=== PATIENT | male | born 1955 | race Caucasian/White ===

== ENCOUNTER 2021-08-20 11:10 | Inpatient (IN) | payer OTHER, SELFPAY ==
[~2021-08-20] VITALS: Ht 170.2 cm; Wt 60.8 kg
--- NOTE | 2021-08-20 11:13 | NUR ---
Placed in room 3 . Placed on continuous still operator, blood pressure machine and pulse oximeter. To gown for exam. Side rails up.
[2021-08-20 11:15] VITALS: BP_SYST 109
--- NOTE | 2021-08-20 11:15 | NUR ---
BRADEN FROM [facility] FOR SOB, CHEST PAIN, TACHYCARDIC AND HYPOTESIVE ARRIVES PULSE IN 120S AND BP 104/67. PT IS SOB 02 SAT ON 4LPM IS 87-88%. PT PLACED ON NRB @ 10LPM O2 SAT INCREASED TO 90-92%. PT HAS PICC IN PLACE TO LEFT UPPER ARM. EMS PLACED #20 TO RIGHT HAND. BLACK CATH IN PLACE. PT HAS HX HTN, COPD, RECENT ABDOMINAL HERNIA REPAIR WITH SEPSIS, INTRA ABDOMINAL ABSCESSES AND CUTANEOUS FISTULAS PT DENIES PAIN UPON ARRIVAL. PER EMS PT HAS BEEN RECEIVING TPN DUE TO NOT TOLERATING PO. PT IS AAOX4
--- NOTE | 2021-08-20 11:30 | NUR ---
ER DR. ADAMS AT THE BEDSIDE EXAMINING PT
[2021-08-20] MEDS ORDERED: NS 1000 ML IV.SOLN IV ONE (11:45)
[2021-08-20] MEDS ORDERED: ACETAMINOPHEN 500 MG TABLET PO ONE (11:45)
[2021-08-20] MEDS ORDERED: PIPERACILLIN/TAZO 3.38 GM in D5W 50 ML IV ONE (11:45)
[2021-08-20] MEDS ORDERED: VANCOMYCIN HCL 1,000 MG in D5W 250 ML IV ONE (11:45)
[2021-08-20] MEDS ORDERED: metroNIDAZOLE 500 MG TABLET PO ONE (11:45)
--- NOTE | 2021-08-20 12:02 | NUR ---
FAMILY CONTACT Britta Barkley -SISTER- [phone]
--- NOTE | 2021-08-20 12:05 | NUR ---
PT ABLE TO TOLERATE SIPS OF WATER FOR PO MEDICATION
--- NOTE | 2021-08-20 12:05 | NUR ---
LAB AT THE BEDSIDE FOR BLOOD DRAW
[2021-08-20] MEDS ORDERED: ALBUTEROL SULFATE 0.083% 2.5 MG/3 ML VIAL.NEB INH ONE (12:15)
[2021-08-20] MEDS ORDERED: PIPERACILLIN/TAZOBACTAM 3.375 GM/VIAL (ZOSYN) IV ONE ×2 (12:21→19:04)
--- NOTE | 2021-08-20 12:30 | NUR ---
RT AT THE BEDSIDE-BREATHING TX. PT NOW ON SIMPLE MASK @ 8LPM 2O SAT 94%
[2021-08-20 12:32] LABS: BASOPHILS % (AUTO) 0.1 % (0.0-2.0); HEMATOCRIT 37.7 % (36-54); HEMOGLOBIN 12.6 g/dL (14.0-18.0); LYMPHOCYTES # (AUTO) 0.6 K/uL (1.0-5.5); LYMPHOCYTES % (AUTO) 4.2 % (20.5-51.5); MEAN CORPUSCULAR HEMOGLOBIN 27 pg (27-31); MEAN CORPUSCULAR HGB CONC 33 % (32-36); MEAN CORPUSCULAR VOLUME 80 fL (79.0-98.0); MONOCYTES # (AUTO) 0.8 K/uL (0.0-1.0); MONOCYTES % (AUTO) 6.3 % (1.7-9.3); NEUTROPHILS # (AUTO) 11.7 K/uL (1.8-7.7); NEUTROPHILS % (AUTO) 89.4 % (40.0-70.0); PLATELET COUNT (AUTO) 236 K/uL (130-430); RED CELL DISTRIBUTION WIDTH 19.9 % (9.0-15.0); WHITE BLOOD COUNT (AUTO) 13.1 K/uL (4.8-10.8)
[2021-08-20] MEDS ORDERED: LOSA50TA3 PO (12:48)
[2021-08-20] MEDS ORDERED: MUPI15CR12 TP (12:48)
[2021-08-20] MEDS ORDERED: TAMS-11 PO (12:48)
[2021-08-20] MEDS ORDERED: CEPH250C PO (12:48)
[2021-08-20] MEDS ORDERED: CLOP75TA32 PO (12:48)
[2021-08-20] MEDS ORDERED: ONDA4TAB5 PO (12:48)
[2021-08-20] MEDS ORDERED: ALBU2.5V7 INH (12:48)
[2021-08-20] MEDS ORDERED: CARV6.2554 PO (12:48)
[2021-08-20] MEDS ORDERED: PRO40 PO (12:48)
[2021-08-20] MEDS ORDERED: FERR-69 PO (12:48)
[2021-08-20] MEDS ORDERED: LIP40 PO (12:48)
[2021-08-20] MEDS ORDERED: MONT-40 PO (12:48)
--- NOTE | 2021-08-20 12:49 | NUR ---
Medication reconciliation completed with information provided by [facility]. Any prior medication reconciliation on file was reviewed and corrected.
[2021-08-20] MEDS ORDERED: VANCOMYCIN HCL 1000 MG/VIAL IV ONE (12:53)
[2021-08-20 12:57] LABS: CALCIUM 9.1 mg/dL (8.4-11.0); CREATININE 0.97 mg/dL (0.55-1.30); POTASSIUM 3.7 mmol/L (3.5-5.1)
--- NOTE | 2021-08-20 13:00 | NUR ---
PT'S DIAPER REMOVED, WOUND AT SUPRAPUBIC AREA COVERED IN SOILED GAUZE- BROWN FOUL SMELLING DISCHARGE. AREA CLEANSED WITH NORMAL SALINE AND COVERED WITH ABD. MADE AWARE. PT CLEANED, LININS AND GOWN CHANGED
[2021-08-20 13:03] LABS: ALBUMIN 3.2 g/dL (3.4-4.8); TOTAL BILIRUBIN 1.2 mg/dL (0.0-1.0)
[2021-08-20 13:15] LABS: BILIRUBIN,URINE 1+ (NEGATIVE); BLOOD, URINE 3+ (NEGATIVE); CLARITY/URINE SL CLOUDY (CLEAR); COLOR,URINE YELLOW (YELLOW); GLUCOSE,URINE TRACE (NEGATIVE); KETONES,URINE TRACE (NEGATIVE); LEUKOCYTE ESTERASE ,URINE 1+ (NEGATIVE); NITRITE, URINE NEGATIVE (NEGATIVE); PH,URINE 5.5 (5.0-8.0); PROTEIN URINE 1+ (NEGATIVE)
[2021-08-20 13:21] LABS: INR 1.3 (0.80-1.20); PROTHROMBIN TIME 13.3 SECS (9.5-12.5)
--- NOTE | 2021-08-20 13:25 | NUR ---
OLD BLACK CATH REMOVED, PT TOLERATED WELL, CATHETER TIP COVERED IN COLORED BROWN AND WHITE MUCOUS, FOUL ODOR. MADE AWARE
[2021-08-20] MEDS ORDERED: NOREPINEPHRINE 4 MG/4 ML VIAL IV ONE (13:29)
[2021-08-20] MEDS ORDERED: NOREPINEPHRINE BITARTRATE 4 MG in NS 246 ML IV ONE (13:30)
--- NOTE | 2021-08-20 13:30 | NUR ---
# 16 FR Boogie catheter with use of sterile technique. Immediate return of 10 cc CLOUDY, YELLOW urine noted. Bedside drainage bag placed below level of bladder. Urine sample collected and sent to lab. Pt tolerated procedure WELL. Patient arrived with boogie in place, changed due to standard of practice prior to admission. Patient unable to toilet self.
--- NOTE | 2021-08-20 13:45 | NUR ---
[facility] FOR STATUS UPDATE
[2021-08-20 14:11] LABS: BACTERIA,URINE MANY /HPF (None Seen); MUCUS,URINE 1+ /LPF (None Seen); WBC,URINE 20-50 /HPF (0-3)
--- NOTE | 2021-08-20 14:20 | NUR ---
Patient transported to radiology via GURNEY, accompanied by STAFF.
--- NOTE | 2021-08-20 16:06 | NUR ---
PT TITRATED OFF LEVOPHED DRIP PER PROTOCOL, BP 133/88 (103), P 104
[2021-08-20] MEDS ORDERED: *TPN PER PHARMACY XX PRN (16:15)
[2021-08-20] MEDS ORDERED: NOREPINEPHRINE BITARTRATE 4 MG in NS 246 ML IV PRN (17:45)
[2021-08-20] MEDS ORDERED: ACETAMINOPHEN 500 MG TABLET PO PRN (17:45)
[2021-08-20] MEDS ORDERED: DOCUSATE SODIUM 100 MG/10 ML UDC PO PRN (17:45)
[2021-08-20] MEDS ORDERED: HYDROcodone/ACETAMIN 7.5-325 MG TAB PO PRN (17:45)
[2021-08-20] MEDS ORDERED: ZOLPIDEM TARTRATE 5 MG TABLET PO PRN (17:45)
[2021-08-20] MEDS: PIPERACILLIN/TAZO 3.375/DEX-IS 50 ML IV SCH (19:02)
[2021-08-20] MEDS: NACL 0.9% 1,000 ML IV SCH (19:02)
--- NOTE | 2021-08-20 19:20 | NUR ---
REPORT GIVEN TO JARRED PEÑA FOR CONTINUING CARE
[2021-08-20 19:41] LABS: INR 1.3 (0.80-1.20); PROTHROMBIN TIME 13.4 SECS (9.5-12.5)
[2021-08-20 20:05] LABS: POTASSIUM 3.2 mmol/L (3.5-5.1)
[2021-08-20 20:09] LABS: CALCIUM 7.9 mg/dL (8.4-11.0); CREATININE 0.9 mg/dL (0.55-1.30)
[2021-08-20 20:10] LABS: TOTAL BILIRUBIN 0.8 mg/dL (0.0-1.0)
[2021-08-20 20:11] LABS: ALBUMIN 2.8 g/dL (3.4-4.8); FREE T4 (FREE THYROXINE) 1.4 ng/dL (0.6-1.6); THYROID STIMULATING HORMONE 0.05 uIu/mL (0.34-4.82)
--- NOTE | 2021-08-20 20:35 | NUR ---
pt c/o of pain, medicated as ordered. pt remains on bedside monitor. will be transferring to icu
--- NOTE | 2021-08-20 20:55 | NUR ---
SBAR report received from SHIPYARD HELPER Augustina, all cares assumed. Pt resting in bed, call light within reach, bed locked and low position.
[2021-08-20 21:00] VITALS: BP_SYST 118
--- NOTE | 2021-08-20 21:19 | NUR ---
Patient will be admitted to care of DR LU. Admitted to ICU unit. Will go to room 5. Belongings list completed. Complete and up to date summary report printed. SBAR report to be given at bedside with opportunity for questions.
[2021-08-20 22:00] VITALS: BP_SYST 114
[2021-08-20 23:00] VITALS: BP_SYST 119
[2021-08-21] VITALS (25 sets, daily range): BP systolic 111–147
[2021-08-21] MEDS ORDERED: PIPERACILLIN/TAZOBACTAM 3.375 GM/VIAL (ZOSYN) IV ONE (00:01)
[2021-08-21] MEDS: PIPERACILLIN/TAZO 3.375/DEX-IS 50 ML IV SCH ×4 (00:19→18:00)
--- NOTE | 2021-08-21 04:55 | NUR ---
CONSULTATION CALLED/PAGED DR. HILTON [phone] [facility] CONSULT SPOKE WITH DAE
--- NOTE | 2021-08-21 04:58 | NUR ---
CONSULTATION PAGED/CALLED DR. SANTIAGO [phone] CARDIO ARRHYTHMIA SPOKE WITH SAROJ
--- NOTE | 2021-08-21 05:45 | NUR ---
Nutrition Update Gabino Scale 13 noted. Pt admitted for Complicated UTI, Septic shock Diet: no diet order BMI: 21.1 kg/m2 RD to follow per nutrition care standards.
--- NOTE | 2021-08-21 06:12 | NUR ---
Dressing changed over suprapubic area. Moderate yellow fluid on dressing. Wound photo obtained and placed in chart.
[2021-08-21 06:30] LABS: BASOPHILS % (AUTO) 0.1 % (0.0-2.0); HEMATOCRIT 29.7 % (36-54); HEMOGLOBIN 10.1 g/dL (14.0-18.0); LYMPHOCYTES # (AUTO) 0.6 K/uL (1.0-5.5); LYMPHOCYTES % (AUTO) 7.1 % (20.5-51.5); MEAN CORPUSCULAR HEMOGLOBIN 27 pg (27-31); MEAN CORPUSCULAR HGB CONC 34 % (32-36); MEAN CORPUSCULAR VOLUME 81 fL (79.0-98.0); MONOCYTES # (AUTO) 0.6 K/uL (0.0-1.0); MONOCYTES % (AUTO) 6.7 % (1.7-9.3); NEUTROPHILS # (AUTO) 7.1 K/uL (1.8-7.7); NEUTROPHILS % (AUTO) 86.1 % (40.0-70.0); PLATELET COUNT (AUTO) 179 K/uL (130-430); RED BLOOD CELL COUNT(AUTO) 3.69 MIL/uL (4.2-6.2); RED CELL DISTRIBUTION WIDTH 20.2 % (9.0-15.0); WHITE BLOOD COUNT (AUTO) 8.2 K/uL (4.8-10.8)
--- NOTE | 2021-08-21 07:03 | NUR ---
SBAR report given to day RN, all cares endorsed.
[2021-08-21 07:51] LABS: ALBUMIN 2.5 g/dL (3.4-4.8); CALCIUM 8.1 mg/dL (8.4-11.0); CREATININE 0.63 mg/dL (0.55-1.30); PHOSPHORUS 3.3 mg/dL (2.7-4.5); POTASSIUM 3.4 mmol/L (3.5-5.1); TOTAL BILIRUBIN 0.5 mg/dL (0.0-1.0)
[2021-08-21] MEDS ORDERED: *TPN PER PHARMACY XX PRN ×2 (08:15→09:00)
[2021-08-21] MEDS: NACL 0.9% 1,000 ML IV SCH ×2 (08:17→21:16)
--- NOTE | 2021-08-21 08:56 | NUR ---
CONSULT ID CONSULTING MD: DR. LENZ PERSON NOTIFIED: ISI DIALED: [phone] ORDERED BY: DR. APPLE
[2021-08-21] MEDS ORDERED: INSULIN REGULAR, HUMAN 100 UNITS/ML, 10 ML VIAL (humuLIN R) SUBCUT PRN (09:00)
[2021-08-21] MEDS ORDERED: DEXTROSE 50% JECT 50 ML DISP.SYRIN IVP PRN (09:00)
[2021-08-21] MEDS ORDERED: DEXMEDETOMIDINE HCL 400 MCG in NS 96 ML IV PRN (10:00)
--- NOTE | 2021-08-21 10:34 | NUR ---
Dietitian Recommendations *Keep NPO *D40% AA 10% at 80ml/hr (goal rate), no lipid via central line. Provides: 92% of lower end of estimated calorie needs and 79% of upper end of estimated protein needs. Please see Nutritional Assessment for details. MARQUIS, RD
--- NOTE | 2021-08-21 11:30 | NUR ---
Pts sister in to visit. Would like to speak to the doctor. Dr Zuluaga informed and he said he would talk to her.
[2021-08-21] MEDS: CARVEDILOL 6.25 MG TABLET (COREG) PO SCH ×2 (11:36→21:15)
[2021-08-21] MEDS: PANTOPRAZOLE SODIUM 40 MG TAB PO SCH (11:36)
[2021-08-21] MEDS ORDERED: LINEZOLID 300 ML IV ONE (12:00)
--- NOTE | 2021-08-21 15:15 | NUR ---
Chitra johnson culture sent to the lab. Family still waiting for Dr. Zuluaga to come and talk to them. Pt resting quietly all day. Sleepy but arouses to name and assists with turning in bed, side to side. Lux with adequate urine in bag. Dressing to abd changed and drainage is brown.
--- NOTE | 2021-08-21 15:30 | NUR ---
WOUND EVALUATION: Wound Consult received from Dr. Zuluaga. Thank you, Dr. Zuluaga, for the consult. Patient received in a [facility] Bed with an Isoflex MABEL mattress, awake, alert, and oriented. Patient is able to turn in bed independently. Gabino Score is a 13. Past Medical History: COPD, CHF, Diabetes Mellitus, Hypertension, recent Ventral Hernia Repair 06/2021 (complicated by post-operative Intra-Abdominal Abscess Formation/Cutaneous Fistula, Protein Malnutrition, previous Myocardial Infarction x 2, multivessel bypass graft surgery, history of chronic smoking. Recent Labs: WBC 8.2, RBC 3.69, hemoglobin 10.1, hematocrit 29.7, ESR 25, sodium 149, potassium 3.4, chloride 113, BUN 25, creatinine 0.63, GFR 135, glucose 110, POC glucose 107, calcium 8.1, serum total protein 5.7, albumin 2.5. PT 13.4, INR 1.3, PTT 23.2. Microbiology: Blood culture results x2 in progress. Urine culture results in progress. MRSA screen results in progress. 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 Extrinsic factors that delay wound healing: Decreased mobility. Wound Assessment: 1. Central Abdomen near Mons Pubis: Wound from prior suprapubic catheter insertion site, present on admission. Wound bed has 100% dull red tissue. No odor, small brown and dark red sanguineous drainage. Aisha-wound intact. Measures 0.3 cm x 3.1 cm. Recommend: Cleanse wound with normal saline. Apply moisture barrier cream to aisha-wound. Apply Silvasorb gel. Cover site with silver foam dressing. Perform wound care daily, and as needed for dressing soiling or dislodgement. Also recommend: Encourage and assist patient with repositioning every 2 hours with pillow support and off-load pressure areas with pillows for pressure re-distribution. Offload, elevate and float bilateral heels with pillows. Perform skin care and monitor skin integrity Q shift. Use moisture barrier cream on buttocks and other moisture susceptible areas QID and as needed for soiling. Place patient on a low air-loss mattress.
--- NOTE | 2021-08-21 15:42 | NUR ---
CONSULT SURGERY CONSULTING MD: DR. LOZA PERSON NOTIFIED: TOBIAS DIALED: [phone] ORDERED BY: DR. JACKSON
--- NOTE | 2021-08-21 18:30 | NUR ---
Pt repositioned in bed with assist. SR with PAC's and PVC's. VSS. continues to have brown drainage from supra pubic wound. Dressing changed.
--- NOTE | 2021-08-21 20:30 | NUR ---
Pt transferred to room 125A ICU over flow room. CAll carl in reach.
[2021-08-21] MEDS ORDERED: [UNRECOGNIZED DRUG - OTHER] IV SCH ×8 (21:00)
[2021-08-21] MEDS ORDERED: TPN CENTRAL IV SCH ×8 (21:00)
[2021-08-21] MEDS ORDERED: K PHOS IV SCH ×8 (21:00)
[2021-08-21] MEDS ORDERED: POTASSIUM ACETATE IV SCH ×8 (21:00)
[2021-08-21] MEDS: LINEZOLID 300 ML IV SCH (21:17)
--- NOTE | 2021-08-21 23:00 | NUR ---
Dressing changed to suprapubic wound. Good urine output.
[2021-08-22] VITALS (14 sets, daily range): BP systolic 117–142
--- NOTE | 2021-08-22 02:00 | NUR ---
Sleeping quietly. SR with PVC's on monitor.
[2021-08-22] MEDS: PIPERACILLIN/TAZO 3.375/DEX-IS 50 ML IV SCH ×4 (02:21→18:00)
[2021-08-22] MEDS: NACL 0.9% 1,000 ML IV SCH ×2 (02:24→13:05)
--- NOTE | 2021-08-22 05:00 | NUR ---
[place] of Care Pt currently asleep, arousable, oriented. Pt states no pain or distress at this time on RA. Lux in place. TPN infusing. SR with PVCs noted.
[2021-08-22 06:26] LABS: EOSINOPHILS % (AUTO) 0.2 % (0.0-4.0); LYMPHOCYTES # (AUTO) 1.2 K/uL (1.0-5.5); LYMPHOCYTES % (AUTO) 14.7 % (20.5-51.5); MEAN CORPUSCULAR HEMOGLOBIN 27 pg (27-31); MEAN CORPUSCULAR HGB CONC 33 % (32-36); MEAN CORPUSCULAR VOLUME 82 fL (79.0-98.0); MONOCYTES # (AUTO) 0.7 K/uL (0.0-1.0); MONOCYTES % (AUTO) 8.8 % (1.7-9.3); NEUTROPHILS # (AUTO) 6.4 K/uL (1.8-7.7); NEUTROPHILS % (AUTO) 76.3 % (40.0-70.0); PLATELET COUNT (AUTO) 203 K/uL (130-430); RED BLOOD CELL COUNT(AUTO) 4.03 MIL/uL (4.2-6.2); RED CELL DISTRIBUTION WIDTH 19.7 % (9.0-15.0); WHITE BLOOD COUNT (AUTO) 8.4 K/uL (4.8-10.8)
[2021-08-22 06:52] LABS: ALBUMIN 2.6 g/dL (3.4-4.8); CALCIUM 8.1 mg/dL (8.4-11.0); CREATININE 0.79 mg/dL (0.55-1.30); PHOSPHORUS 2.7 mg/dL (2.7-4.5); POTASSIUM 3.1 mmol/L (3.5-5.1); TOTAL BILIRUBIN 0.4 mg/dL (0.0-1.0)
--- NOTE | 2021-08-22 07:15 | NUR ---
Endorsed plan of care to oncoming RN.
--- NOTE | 2021-08-22 08:00 | NUR ---
MORNING ROUNDS: PATIENT SLEEPING DURING ROUNDS. UNLABORED BREATHING. WITH RIGHT UPPER ARM PICC LINE,IV FLUIDS RUNNING WELL.TPN AT 42CC/H INTACT. NPO.BLACK DRAINING TO LARGE AMOUNT OF YELLOW URINE. CONTINUE TO MONITOR.
[2021-08-22] MEDS: PANTOPRAZOLE SODIUM 40 MG TAB PO SCH (08:56)
[2021-08-22] MEDS: POTASSIUM CHLORIDE 20 MEQ TAB.PRT.SR PO PRN (08:56)
[2021-08-22] MEDS: CARVEDILOL 6.25 MG TABLET (COREG) PO SCH ×2 (09:00→21:38)
[2021-08-22] MEDS: LINEZOLID 300 ML IV SCH (09:03)
--- NOTE | 2021-08-22 09:20 | NUR ---
DRESSING CHANGE: CLEANSE WITH ,PAT DRY. COVERED WITH COVERED WITH 4X4 GAUZE AND ABD PAD OVER IT.TAPE IT. Addendum: 08/22/21 at 1103 by Jessica Peña RN RE:PREVIOUS SUPRAPUBIC SITE.
[2021-08-22] MEDS ORDERED: [UNRECOGNIZED DRUG - OTHER] IV SCH ×16 (10:45→21:00)
[2021-08-22] MEDS ORDERED: POTASSIUM ACETATE IV SCH ×16 (10:45→21:00)
[2021-08-22] MEDS ORDERED: TPN CENTRAL IV SCH ×16 (10:45→21:00)
[2021-08-22] MEDS ORDERED: K PHOS IV SCH ×16 (10:45→21:00)
[2021-08-22] MEDS: SILVER 44.4 ML GEL.ER.ML. TP SCH (12:18)
--- NOTE | 2021-08-22 12:30 | NUR ---
DOWNGRADE TO MST FLOOR: PATIENT DOWNGRADED TO MST FLOOR ORDERED.
--- NOTE | 2021-08-22 18:30 | NUR ---
EVENING ROUNDS: PATIENT RESTING. SISTER AT THE BEDSIDE. PT SWEATY,BLOOD SUGAR CHECKED=96%.CARE RENDERED.BLACK IN YELLOW URINE IN LARGE AMOUNT. NO ACUTE DISTRESS. CONTINUE TO MONITOR.
[2021-08-22] MEDS: MICAFUNGIN SODIUM 100 MG in NS 100 ML IV SCH (19:27)
[2021-08-22] MEDS: AMPICILLIN SODIUM 2 GM in NS 100 ML IV SCH (23:55)
[2021-08-23] VITALS: BP_SYST 120
[2021-08-23] MEDS: NACL 0.9% 1,000 ML IV SCH ×2 (01:55→23:46)
[2021-08-23] MEDS: AMPICILLIN SODIUM 2 GM in NS 100 ML IV SCH ×3 (06:52→18:09)
--- NOTE | 2021-08-23 06:55 | NUR ---
antibiotic Due med, Ampicillin administered and infusing well via PICC, tolerating, no s/sx of infiltration
[2021-08-23 07:38] LABS: BASOPHILS % (AUTO) 0.2 % (0.0-2.0); EOSINOPHILS # (AUTO) 0.1 K/uL (0.0-0.4); EOSINOPHILS % (AUTO) 0.8 % (0.0-4.0); HEMATOCRIT 38.6 % (36-54); HEMOGLOBIN 12.9 g/dL (14.0-18.0); LYMPHOCYTES # (AUTO) 1.2 K/uL (1.0-5.5); LYMPHOCYTES % (AUTO) 16.9 % (20.5-51.5); MEAN CORPUSCULAR HEMOGLOBIN 27 pg (27-31); MEAN CORPUSCULAR HGB CONC 33 % (32-36); MEAN CORPUSCULAR VOLUME 81 fL (79.0-98.0); MONOCYTES # (AUTO) 0.7 K/uL (0.0-1.0); MONOCYTES % (AUTO) 9.2 % (1.7-9.3); NEUTROPHILS # (AUTO) 5.3 K/uL (1.8-7.7); NEUTROPHILS % (AUTO) 72.9 % (40.0-70.0); PLATELET COUNT (AUTO) 209 K/uL (130-430); RED BLOOD CELL COUNT(AUTO) 4.76 MIL/uL (4.2-6.2); RED CELL DISTRIBUTION WIDTH 19.9 % (9.0-15.0); WHITE BLOOD COUNT (AUTO) 7.3 K/uL (4.8-10.8)
[2021-08-23 08:00] LABS: ALBUMIN 2.8 g/dL (3.4-4.8); CALCIUM 8.2 mg/dL (8.4-11.0); CREATININE 0.8 mg/dL (0.55-1.30); PHOSPHORUS 2.7 mg/dL (2.7-4.5); POTASSIUM 3.1 mmol/L (3.5-5.1); TOTAL BILIRUBIN 0.6 mg/dL (0.0-1.0)
--- NOTE | 2021-08-23 08:00 | NUR ---
NOTES PATIENT ALERT AWAKE X 2-3. VERBALIZED FEELS WEAK. VITALS SIGNS STABLE. AFEBRILE. HAS IV ACCESS ON THE LEFT UPPER PICC LINE WITH TPN AND NORMAL SALINE INFUSING ON WELL. CALL LIGHTS WITHIN REACH. BED LOW POSITION, ALARMED AND LOCKED. WILL CONTINUE TO MONITOR PATIENTS STATUS.
--- NOTE | 2021-08-23 09:00 | NUR ---
DUE MEDS GIVEN ORDERED.
[2021-08-23] MEDS: POTASSIUM CHLORIDE 20 MEQ TAB.PRT.SR PO PRN (09:22)
[2021-08-23] MEDS: PANTOPRAZOLE SODIUM 40 MG TAB PO SCH (09:22)
[2021-08-23] MEDS: CARVEDILOL 6.25 MG TABLET (COREG) PO SCH ×2 (09:27→20:40)
[2021-08-23 09:29] VITALS: BP_SYST 125
[2021-08-23] MEDS: SILVER 44.4 ML GEL.ER.ML. TP SCH (09:45)
[2021-08-23 14:01] VITALS: BP_SYST 128
[2021-08-23 17:44] VITALS: BP_SYST 130
--- NOTE | 2021-08-23 17:50 | NUR ---
JON CARE AND HYGIENE CARE DONE. TURN TO SIDES. MADE COMFORTABLE.
--- NOTE | 2021-08-23 17:51 | NUR ---
AMPICILLIN IV ANTIBIOTIC GIVEN. AT THIS TIME. DR JACKSON CALLED FOR THE FAMILY TO KNOW STATUS OF THE PATIENT.
[2021-08-23] MEDS: MICAFUNGIN SODIUM 100 MG in NS 100 ML IV SCH (18:09)
--- NOTE | 2021-08-23 19:35 | NUR ---
OPENING NOTE PT IN BED SITTING. PT IS SLEEPING, AUDIBLE WHEEZE NOTED. BLACK CATHETER DRAINING TO GRAVITY. IV FLUIDS RUNNING. PT BED IN LOWEST POSITION WITH STANDARD AND FALL PRECAUTIONS IN PLACE.
[2021-08-23] MEDS: ONDANSETRON HCL 4 MG/2 ML VIAL IVP PRN (20:36)
[2021-08-23] MEDS: guaiFENesin/DEXTROMETHORPHAN 10 ML UDC PO PRN (20:40)
--- NOTE | 2021-08-23 20:58 | NUR ---
TPN, Zofran Patient holding emesis bag and reports nausea, did not have emesis. Zofran administered as ordered. Administered TPN via SUKHI PICC line; infusing well.
[2021-08-23] MEDS ORDERED: TPN CENTRAL IV SCH ×9 (21:00)
[2021-08-23] MEDS ORDERED: POTASSIUM ACETATE IV SCH ×9 (21:00)
[2021-08-23] MEDS ORDERED: [UNRECOGNIZED DRUG - OTHER] IV SCH ×9 (21:00)
[2021-08-23] MEDS ORDERED: K PHOS IV SCH ×9 (21:00)
--- NOTE | 2021-08-23 23:30 | NUR ---
PT CARE PT SLEEPING. PERFORMED WOUND CARE ON LOWER ABDM. FOLLOWED WOUND CARE INSTRUCTIONS. PT WOKE UP MID WOUND CARE AND VOMITED. EMESIS AMOUNT 25 ML. PT WAS SAT UP AND CLEANED. PT WAS RESTING WHEN NURSE LEFT. BED IN LOWEST POSITION WITH STANDARD AND FALL PRECAUTIONS IN PLACE, CALL LIGHT WITHIN REACH. BLACK CATHETER DRAINING TO GRAVITY. WILL RECHECK PATIENT IN 15 MINUTES
[2021-08-24] MEDS: AMPICILLIN SODIUM 2 GM in NS 100 ML IV SCH ×3 (00:26→12:28)
--- NOTE | 2021-08-24 00:38 | NUR ---
Ampicillin Scheduled antibiotic administered as ordered; infusing well.
[2021-08-24] MEDS: ONDANSETRON HCL 4 MG/2 ML VIAL IVP PRN (05:37)
--- NOTE | 2021-08-24 07:23 | NUR ---
CLOSING NOTE PT STABLE IN BED. NO DISTRESS NOTED. SAFETY PRECAUTIONS IN PLACE WITH CALL LIGHT WITHIN REACH. NEEDS MET THROUGHOUT SHIFT, ENDORSED CARE.
[2021-08-24 07:31] LABS: EOSINOPHILS # (AUTO) 0.1 K/uL (0.0-0.4); EOSINOPHILS % (AUTO) 1.5 % (0.0-4.0); HEMATOCRIT 38.3 % (36-54); HEMOGLOBIN 12.9 g/dL (14.0-18.0); LYMPHOCYTES % (AUTO) 18.7 % (20.5-51.5); MEAN CORPUSCULAR HEMOGLOBIN 27 pg (27-31); MEAN CORPUSCULAR HGB CONC 34 % (32-36); MEAN CORPUSCULAR VOLUME 80 fL (79.0-98.0); MONOCYTES # (AUTO) 0.5 K/uL (0.0-1.0); MONOCYTES % (AUTO) 8.8 % (1.7-9.3); NEUTROPHILS # (AUTO) 3.9 K/uL (1.8-7.7); PLATELET COUNT (AUTO) 188 K/uL (130-430); RED BLOOD CELL COUNT(AUTO) 4.78 MIL/uL (4.2-6.2); RED CELL DISTRIBUTION WIDTH 19.4 % (9.0-15.0); WHITE BLOOD COUNT (AUTO) 5.4 K/uL (4.8-10.8)
[2021-08-24 08:32] LABS: ALBUMIN 2.6 g/dL (3.4-4.8); CALCIUM 7.9 mg/dL (8.4-11.0); CREATININE 0.74 mg/dL (0.55-1.30); PHOSPHORUS 2.4 mg/dL (2.7-4.5); POTASSIUM 3.8 mmol/L (3.5-5.1); TOTAL BILIRUBIN 0.6 mg/dL (0.0-1.0)
[2021-08-24] MEDS: PANTOPRAZOLE SODIUM 40 MG TAB PO SCH (08:34)
--- NOTE | 2021-08-24 08:45 | NUR ---
received pt asleep, not in any acute distress/sob. resp even & unlabored./ afebrile. denies pain at the moment. seen and examined by Dr. Penaloza, surgeon and examined lower abdomen suprapubic wound. dressing changed. will con't to monitor. w/ ongoing IVF, TPN as ordered. PICC line on SUKHI intact w/ blood return. w/ f/c draining good colored urine. proper boogie care provided. turned and respositioned. will con't to monitor. Addendum: 08/25/21 at 0146 by [facility] underwriting manager late entry for 08/24/212044
[2021-08-24] MEDS: CARVEDILOL 6.25 MG TABLET (COREG) PO SCH ×2 (08:48→22:17)
[2021-08-24] MEDS: SILVER 44.4 ML GEL.ER.ML. TP SCH (08:49)
--- NOTE | 2021-08-24 10:03 | NUR ---
CALLED THE OFFICE OF DR KIRAN LOZA GEN SURGEON RE: TO REMIND HIM OF THE CONSULT FOR INTRAABDOMINAL INFECTION CALLED ON THE 08/21/21. SPOKE TO GREG.
--- NOTE | 2021-08-24 11:03 | NUR ---
YANIRA STERN SAID DR JACKSON SPOKE TO DR DENIA BECK AND WILL COME TO SEE THE PATIENT.
[2021-08-24 13:53] VITALS: BP_SYST 125
[2021-08-24] MEDS: NACL 0.9% 1,000 ML IV SCH (15:05)
--- NOTE | 2021-08-24 16:45 | NUR ---
Nutrition F/U Admitting Diagnosis Complicated UTI, Septic shock Reviewed Pertinent Medical/Surgical Hx Medical Record Patient Sisters Daughter Medical History Comment: Septic shock, Intraabdominal infection, Diabetes, Hypertension, Congestive heart failure per MD notes. PMH: CHF, COPD, HTN, DM. SARS-COV-2 Ag rapid 1/2 Negative Subjective Information Short note d/t high RD load. RD rounded to pt's bedside. Family present at bedside. Witnessed TPN infusing as per physician/pharmacy. Sister concerned w/ applesauce that was present at bedside, as she was under the impression that pt is NPO -- RD inquired w/ primary RN -- she stated that pt can have a bit of applesauce w/ med (Coreg). Family informed. Family also stated that pt has been on TPN for the past 9 weeks. Pt is not yet meeting nutritional needs. Current Diet Order/Nutrition Support TPN D40%, AA10% at 69.8 ml/hr via central line Patient/Significant Other Unable To Verbalize Education Provided Not Indicated Pertinent Medications Reviewed Pertinent Labs Reviewed Height (Feet) 5 feet Height (Inches) 7.00 inches Weight (Pounds) 134 pounds Weight (Calculated Kilograms) 60.700272 kilograms Patient Weight 60.781 kg Body Mass Index 20.98 kg/m2 %IBW 91 Ermine/Adjusted Body Weight 148#/ 67kg Recent Weight Change unknwon Weight Status Appropriate Usual Diet At Home TPN at home per EMR Skin Integrity Comment: Gabino scale: 13, Per RN notes, wound to lower abdomen, suprapubic cath site. No edema noted. Estimated Energy Expenditure (kcals/day) 8658-4471 (30-35 kcal/kg CBW for sepsis) Estimated Protein Required (g/day) 91-122 (1.5-2 gm/kg CBW for sepsis/wound healing) Estimated Fluid Required (l/day) per MD (CHF) Problem/Etiology/Signs/Symptoms Increase protein-calorie needs r/t metabolic demands AEB estimated calorie and protein needs for sepsis. *ongoing Inadequate PN intake r/t no PN support AEB pending start of PN. *ongoing Expected Outcomes/Goals - Monitor TPN support and intake w/ goal of pt meeting more than 75% of estimated nutritional needs, labs trending WNL, normal GI function, skin integrity/wt maintenance. Dietitian Recommendations * TPN D40%, AA10% at 80 ml/hr (goal rate), no lipid via central line. Provides: 1690 kcal/day, 96 gm protein/day, 1920 ml total volume/day, and GIR: 4.4 gm CHO/kg/min Meets: 92% of lower end of estimated caloric needs and 105% of lower end of estimated protein needs Follow Up High Risk: F/U in 2-3 days
--- NOTE | 2021-08-24 16:50 | NUR ---
Dietitian Recommendations * TPN D40%, AA10% at 80 ml/hr (goal rate), no lipid via central line. Provides: 1690 kcal/day, 96 gm protein/day, 1920 ml total volume/day, and GIR: 4.4 gm CHO/kg/min Meets: 92% of lower end of estimated caloric needs and 105% of lower end of estimated protein needs LP, RD Please refer to Nutrition F/U for details.
--- NOTE | 2021-08-24 17:40 | NUR ---
SEEN BY KIRAN BORGES FOR SURGICAL CONSULT OF SUPRAPUBIC WOUND. ORDERED TO HAVE WOUND CARE DRESSING EVERY SHIFT WITH SILVASORB.
[2021-08-24 20:00] VITALS: BP_SYST 119
--- NOTE | 2021-08-24 20:45 | NUR ---
received pt asleep, not in any acute distress/sob. resp even & unlabored./ afebrile. denies pain at the moment. seen and examined by Dr. Penaloza, surgeon and examined lower abdomen suprapubic wound. dressing changed. will con't to monitor. w/ ongoing IVF, TPN as ordered. PICC line on SUKHI intact w/ blood return. w/ f/c draining good colored urine. proper boogie care provided. turned and respositioned. will con't to monitor.
[2021-08-24] MEDS ORDERED: TPN CENTRAL IV SCH ×9 (21:00)
[2021-08-24] MEDS ORDERED: POTASSIUM ACETATE IV SCH ×9 (21:00)
[2021-08-24] MEDS ORDERED: K PHOS IV SCH ×9 (21:00)
[2021-08-24] MEDS ORDERED: [UNRECOGNIZED DRUG - OTHER] IV SCH ×9 (21:00)
[2021-08-24] MEDS: MICAFUNGIN SODIUM 100 MG in NS 100 ML IV SCH (21:15)
[2021-08-24] MEDS: guaiFENesin/DEXTROMETHORPHAN 10 ML UDC PO PRN (22:47)
[2021-08-25] VITALS (16 sets, daily range): BP systolic 56–134
[2021-08-25] MEDS: AMPICILLIN SODIUM 2 GM in NS 100 ML IV SCH ×5 (01:10→17:27)
[2021-08-25 07:18] LABS: BASOPHILS % (AUTO) 0.5 % (0.0-2.0); EOSINOPHILS % (AUTO) 0.4 % (0.0-4.0); HEMATOCRIT 37.8 % (36-54); HEMOGLOBIN 12.5 g/dL (14.0-18.0); LYMPHOCYTES # (AUTO) 1.5 K/uL (1.0-5.5); LYMPHOCYTES % (AUTO) 21.2 % (20.5-51.5); MEAN CORPUSCULAR HEMOGLOBIN 27 pg (27-31); MEAN CORPUSCULAR HGB CONC 33 % (32-36); MEAN CORPUSCULAR VOLUME 80 fL (79.0-98.0); MONOCYTES # (AUTO) 0.5 K/uL (0.0-1.0); MONOCYTES % (AUTO) 7.6 % (1.7-9.3); NEUTROPHILS # (AUTO) 4.9 K/uL (1.8-7.7); NEUTROPHILS % (AUTO) 70.3 % (40.0-70.0); PLATELET COUNT (AUTO) 149 K/uL (130-430); RED CELL DISTRIBUTION WIDTH 20.1 % (9.0-15.0); WHITE BLOOD COUNT (AUTO) 6.9 K/uL (4.8-10.8)
[2021-08-25 08:04] LABS: ALBUMIN 2.2 g/dL (3.4-4.8); CALCIUM 7.9 mg/dL (8.4-11.0); CREATININE 0.92 mg/dL (0.55-1.30); PHOSPHORUS 2.8 mg/dL (2.7-4.5); POTASSIUM 4.3 mmol/L (3.5-5.1); TOTAL BILIRUBIN 0.7 mg/dL (0.0-1.0)
[2021-08-25] MEDS: CARVEDILOL 6.25 MG TABLET (COREG) PO SCH ×2 (09:00→21:19)
[2021-08-25] MEDS: PANTOPRAZOLE SODIUM 40 MG TAB PO SCH (09:00)
--- NOTE | 2021-08-25 09:15 | NUR ---
Note Pt was saline locked and transported to CT dept for CT of head/brain at 0850am. Pt returned to floor at 0910am. Pt was reconnected to IVF's and TPN.
[2021-08-25] MEDS: SILVER 44.4 ML GEL.ER.ML. TP SCH (10:09)
[2021-08-25 11:21] LABS: FREE T4 (FREE THYROXINE) 1.4 ng/dl (0.8-1.5); THYROID STIMULATING HORMONE 0.5 uIu/mL (0.36-3.74)
--- NOTE | 2021-08-25 12:41 | NUR ---
paged change in status paged Dr. Zuluaga low bp, O2 97% on 10L face mask. spoke with exchange
--- NOTE | 2021-08-25 12:44 | NUR ---
PAGED PAGED DR SANTIAGO FOR LOW BP, 97% 10L MASK, CHANGE IN STATUS LEFT MESSAGE ON EXCHANGE
--- NOTE | 2021-08-25 13:00 | NUR ---
RT NOTES 1300 Pt lethargic, desaturated to low 80s, mouth breather. switched pt to 10L SM. saturation went up to 95%. ABG draw. HCO3 19.3. Pt breath sound coarse, NT Sxn pt. (small/thin/white). JARRED Meza at bedside.
--- NOTE | 2021-08-25 13:24 | NUR ---
CHARGE NURSE ARMIDA ASKED ME TO INFORM PULMO DR APPLE THAT PT WAS TRANSFERED TO ICU DUE TO CHANGE IN STATUS, PT BECAME LETHARGIC, HYPOTENSIVE AND ON 10 L FACE MASK. SPOKE TO JASVIR
--- NOTE | 2021-08-25 13:25 | NUR ---
Note Dr Zuluaga called back after 2-3 calls - to notify MD of change in pt's status. Order for transfer to ICU received and ABG stat. Dr Wetzel called back at this time as well and order to stat CXR received as well. Pt's status changed throughout the shift. Pt was lethargic since start of shift. Responded to shaking and moving shoulder. WOuld not open his eyes. Pt's O2 went from 2L/nc to 10L/face mask by 1330. RT was called and RT intervention was done.
[2021-08-25] MEDS ORDERED: ALBUMIN HUMAN 25% 100 ML IV ONE (13:30)
--- NOTE | 2021-08-25 13:30 | NUR ---
NOTE Pt was transferred to ICU-bed 4 via bed at this time. Report was given to Olman TIRE SHOP MECHANIC. Pt was transferred with O2 at 10L/face mask. Lux catheter intact and draining. SUKHI PICC intact and patent. Pt's sister Mariah at bedside since 10am. Pt's sister Mariah packed and took all pt's belongings with her. Pt still very lethargic and not responsive when aroused.
--- NOTE | 2021-08-25 13:45 | NUR ---
Recv patient fr telmetry, patient is obtunded and bp is low in the 60's , notified dr Wetzel, he said we can start Levophed, for MAP > 60, PATIENT IS ON 10L face mask, Dr. Wetzel said to call dr kenyon and notify him that patient transferred to ICU.
--- NOTE | 2021-08-25 14:00 | NUR ---
sPOKE WITH Dr. Estes, he said he is aware of patient transferred to ICU, if patient needs to be intubated, just call e.r. doctor to intubate the patient.
[2021-08-25] MEDS ORDERED: NOREPINEPHRINE 4 MG/4 ML VIAL IV ONE ×2 (14:04→23:50)
[2021-08-25] MEDS ORDERED: VECURONIUM BROMIDE 10 MG/VIAL (NORCURON) IV ONE (14:07)
[2021-08-25] MEDS ORDERED: ETOMIDATE 20 MG/ 10 ML VIAL (AMIDATE) IVP ONE (14:07)
[2021-08-25] MEDS ORDERED: NACL 0.9% 1,000 ML IV SCH (14:30)
[2021-08-25] MEDS: NACL 0.9% 1,000 ML IV SCH (15:35)
[2021-08-25] MEDS ORDERED: NOREPINEPHRINE BITARTRATE 16 MG in D5W 234 ML IV PRN (15:45)
--- NOTE | 2021-08-25 20:00 | NUR ---
RN NOTES PATIENT RESPONDS TO PAINFUL STIMULI. SINUS TACHYCARDIA ON THE MONITOR. O2 SATURATION ON THE LOW 90's, VITALS CHECKED AND RECORDED.
[2021-08-25] MEDS: MICAFUNGIN SODIUM 100 MG in NS 100 ML IV SCH (20:22)
[2021-08-25] MEDS ORDERED: POTASSIUM ACETATE IV SCH ×9 (21:00)
[2021-08-25] MEDS ORDERED: K PHOS IV SCH ×9 (21:00)
[2021-08-25] MEDS ORDERED: LEVOFLOXACIN IN DEXTROSE 5 % 100 ML IV SCH (21:00)
[2021-08-25] MEDS ORDERED: TPN CENTRAL IV SCH ×9 (21:00)
[2021-08-25] MEDS ORDERED: [UNRECOGNIZED DRUG - OTHER] IV SCH ×9 (21:00)
[2021-08-25] MEDS ORDERED: LEVOFLOXACIN IN DEXTROSE 5 % 100 ML IV ONE (21:20)
--- NOTE | 2021-08-25 21:22 | NUR ---
PAGED: DR. HILTON [phone] ORDERS SPOKE WITH SOLOMON
--- NOTE | 2021-08-25 21:50 | NUR ---
CALLED 2ND CALL: DR. HILTON [phone] ORDERS SPOKE WITH YARI
--- NOTE | 2021-08-25 22:01 | NUR ---
PAGED: DR. DEL CID [phone] ORDERS SPOKE WITH JAIDEN
--- NOTE | 2021-08-25 22:20 | NUR ---
RN NOTES PATIENT SPO2 75% AT THIS TIME. DR. TSERING CARRIZALES/ CALLED AND REQUESTED TO EVALUATE THE PATIENT.
--- NOTE | 2021-08-25 22:30 | NUR ---
RN NOTES DR CAGLE AT BEDSIDE, WILL INTUBATE PATIENT. PATIENT PRE-MEDICATED WITH ETOMIDATE 20MG IVP AND VECURONIUM 10 MG IVP PRIOR TO INTUBATION. INTUBATION DONE WITHOUT DIFFICULTY. NGT PLACEMENT DONE. WILL CHECK ET TUBE AND NGT PLACEMENT WITH CHEST X-RAY.
--- NOTE | 2021-08-25 22:40 | NUR ---
RN NOTES DR. HILTON CALLED IN, PATIENT CONDITION RELAYED, CRITICAL ABG PRIOR TO INTUBATION RELAYED. WITH ORDERS CARRIED OUT. NORMAL SALINE 500ML BOLUS INFUSED. 1 AMP SODIUM BICARBONATE GIVEN IVP.
[2021-08-25] MEDS ORDERED: SODIUM BICARBONATE 8.4% JECT 50 MEQ/50 ML SYRINGE IVP ONE (22:45)
[2021-08-25] MEDS ORDERED: NS 500 ML IV ONE (22:45)
[2021-08-25] MEDS ORDERED: SODIUM BICARBONATE 8.4% JECT 50 MEQ/50 ML SYRINGE ONE (22:46)
--- NOTE | 2021-08-25 23:50 | NUR ---
PAGED: DR. HILTON [phone] ORDERS/CRITICAL ABG RESULTS SPOKE WITH ZENAIDA
[2021-08-26] VITALS (14 sets, daily range): BP systolic 36–120
--- NOTE | 2021-08-26 | NUR ---
RN NOTES BS - 150 MGS/DL NO COVERAGE GIVEN.
[2021-08-26] MEDS ORDERED: PHENYLEPHRINE HCL 10 MG/ML VIAL (NEOSYNEPHRINE) ONE ×2 (00:12→00:13)
[2021-08-26] MEDS ORDERED: PHENYLEPHRINE HCL 100 MG in NS 240 ML IV PRN (00:15)
[2021-08-26] MEDS ORDERED: NACL 0.9% 1,000 ML IV ONE (00:15)
[2021-08-26] MEDS: NACL 0.9% 1,000 ML IV SCH (00:25)
--- NOTE | 2021-08-26 00:50 | NUR ---
RN NOTES NEOSYNEPHRINE DRIP STARTED FOR BP SUPPORT
[2021-08-26] MEDS: AMPICILLIN SODIUM 2 GM in NS 100 ML IV SCH ×2 (00:51→05:51)
--- NOTE | 2021-08-26 04:00 | NUR ---
RN NOTES ST ON THE MONITOR. LEVOPHED AND NEOSYNEPRINE DRIP INFUSING. ON SAME VENT SETTING. SPO2 90s
[2021-08-26] MEDS ORDERED: NOREPINEPHRINE 4 MG/4 ML VIAL IV ONE ×2 (05:29→05:39)
--- NOTE | 2021-08-26 06:10 | NUR ---
Attempted to call pts sister on cell phone. Left a message. Pt continues on Levo at 1mcg and neosynephrine at 2 mcgs/kg/min.
--- NOTE | 2021-08-26 07:30 | NUR ---
RT NOTES Responded to code blue, cpr in progress, pt was bagged with 100% O2 via resus. bag to ET tube. ROSC @ 5979.
[2021-08-26] MEDS ORDERED: ALBUMIN HUMAN 25% 50 ML IV ONE (07:45)
[2021-08-26 08:13] LABS: ALBUMIN 2.3 g/dL (3.4-4.8); CALCIUM 7.4 mg/dL (8.4-11.0); CREATININE 1.9 mg/dL (0.55-1.30); PHOSPHORUS 6.6 mg/dL (2.7-4.5); POTASSIUM 4.9 mmol/L (3.5-5.1)
--- NOTE | 2021-08-26 08:23 | NUR ---
RT NOTES PEEP to [address] Estes
[2021-08-26] MEDS ORDERED: VASOPRESSIN 100 UNITS in D5W 45 ML IV PRN (08:30)
[2021-08-26] MEDS: CARVEDILOL 6.25 MG TABLET (COREG) PO SCH (08:37)
[2021-08-26] MEDS: PANTOPRAZOLE SODIUM 40 MG TAB PO SCH (08:39)
[2021-08-26] MEDS: SILVER 44.4 ML GEL.ER.ML. TP SCH (08:40)
--- NOTE | 2021-08-26 08:45 | NUR ---
AT APPROXIMATELY 0735 PT BECAME HYPOTENSIVE AND BRADICARDIC, NO PALPAPABLE PULSE. HIGH QUALITY CPR STARTED PER ACLS PROTOCOL
[2021-08-26] MEDS ORDERED: VASOPRESSIN 20 UNITS/ML VIAL IV ONE (08:51)
[2021-08-26] MEDS ORDERED: NOREPINEPHRINE BITARTRATE 16 MG in D5W 234 ML IV PRN (09:00)
--- NOTE | 2021-08-26 09:34 | NUR ---
RT NOTES Responded to code blue, cpr in progress, bagged pt with 100% O2 via resus. bag to ET tube. @0898 Dr Vargas stopped the code per family's request.
[2021-08-26] MEDS ORDERED: TPN CENTRAL IV SCH ×7 (21:00)
[2021-08-26] MEDS ORDERED: [UNRECOGNIZED DRUG - OTHER] IV SCH ×7 (21:00)
[2021-08-26] MEDS ORDERED: POTASSIUM ACETATE IV SCH ×7 (21:00)
[2021-08-26] MEDS ORDERED: CALCIUM GLUCONATE IV SCH ×7 (21:00)
== END 2021-08-26 18:49 | DRG 871 ==
LOC: SED 11:10 → SIC 16:14 → STU 08-22 12:05 → SMU 08-24 11:08 → SIC 08-25 13:39
PROVIDERS: ADMIT Internal Medicine Hospice and Palliative Medicine; ATTEND Internal Medicine Hospice and Palliative Medicine
PROC: 0BH17EZ Insertion of Endotracheal Airway into Trachea, Via Natural or Artificial Opening (ICD-10-PCS; 2021-08-25)
PROC: 5A1935Z Respiratory Ventilation, Less than 24 Consecutive Hours (ICD-10-PCS; 2021-08-25)
PROC: 5A12012 Performance of Cardiac Output, Single, Manual (ICD-10-PCS; principal; 2021-08-26)
DX: A41.9 Sepsis, unspecified organism (principal); R65.21 Severe sepsis with septic shock; E43 Unspecified severe protein-calorie malnutrition; J96.00 Acute respiratory failure, unspecified whether with hypoxia or hypercapnia; K65.1 Peritoneal abscess; G93.41 Metabolic encephalopathy; L02.211 Cutaneous abscess of abdominal wall; N39.0 Urinary tract infection, site not specified; K63.2 Fistula of intestine; J44.9 Chronic obstructive pulmonary disease, unspecified; I25.5 Ischemic cardiomyopathy; I46.9 Cardiac arrest, cause unspecified; B95.2 Enterococcus as the cause of diseases classified elsewhere; Z20.822 Contact with and (suspected) exposure to COVID-19; B96.20 Unspecified Escherichia coli [E. coli] as the cause of diseases classified elsewhere; E11.9 Type 2 diabetes mellitus without complications; I11.0 Hypertensive heart disease with heart failure; I50.9 Heart failure, unspecified; Z88.1 Allergy status to other antibiotic agents; Z79.899 Other long term (current) drug therapy; Z87.891 Personal history of nicotine dependence; Z68.21 Body mass index [BMI] 21.0-21.9, adult; I25.2 Old myocardial infarction
CPT/HCPCS: 36415; 36600; 70450-TC; 71045; 76376; 80053; 80061; 81000; 82140; 82150; 82803-TC; 82962; 83036; 83605; 83690; 83735; 83880; 84100; 84439; 84443; 84478; 84484; 85025; 85610-TC; 85651-TC; 85730-TC; 86140; 87040; 87070-TC; 87081; 87086; 87186-TC; 87205-TC; 92950; 93005; 93306; 94002; 94003; 94640; 96365; 96366; 96367; 99291; G0378; J0290; J0610; J1815; J1956; J2020; J2248; J2370; J2405; J2543; J3370; J3475; J3490; J7050; J7060; J7131; J7613; P9046; Q9967